=== PATIENT | female | born 1985 | race Caucasian/White ===

== ENCOUNTER 2018-08-01 18:15 | Emergency (ER) | payer BC ==
--- NOTE | 2018-08-01 18:24 | EDM.PDOC ---
ED HPI GENERAL MEDICAL PROBLEM - General Chief Complaint: Skin Complaint Stated Complaint: LEFT HAND INFECTION,SWELLING, SLIGHT PAIN, RASH Time Seen by Provider: 08/01/18 18:23 Source of Information: Reports: Patient History Limitations: Reports: No Limitations - History of Present Illness INITIAL COMMENTS - FREE TEXT/NARRATIVE: History of present illness: []Patient has complaint of a skin infection over her right hand base her dorsal index finger that has spreading redness. Patient denies any fevers, chills but noticed that she has other abrasions on her thigh that seem to be flaring up she also has a vaginal and anal rash that is chronic and has been worked up by the [employer] and cultures were negative for bacteria and need. She would like an answer as to what is the cause of the rash now. Review of systems: As per history of present illness and below otherwise all systems reviewed and negative. Past medical history: As per history of present illness and as reviewed below otherwise noncontributory. Surgical history: As per history of present illness and as reviewed below otherwise noncontributory. Social history: No reported history of drug or alcohol abuse. Family history: As per history of present illness and as reviewed below otherwise noncontributory. Physical exam: General: Well developed, well nourished in NAD HEENT: Atraumatic, normocephalic, pupils reactive, negative for conjunctival pallor or scleral icterus, mucous membranes moist, throat clear, neck supple, nontender, trachea midline. Lungs: Clear to auscultation, breath sounds equal bilaterally, chest nontender. Heart: S1S2, regular, negative for clicks, rubs, or JVD. Abdomen: NABS, Soft, nondistended, nontender. Negative for masses or hepatosplenomegaly. Negative for costovertebral tenderness. Pelvis: Stable nontender. Genitourinary: Patient has external rectal-vaginal rash that appears similar to candidiasis, vaginal Rectal: Deferred. Extremities: Small abrasion over her right dorsal MCP joint, full range of motion, there is surrounding erythema and streaking up her right forearm. Neurovascular unremarkable. Neuro: Awake, alert, oriented. Cranial nerves II through XII unremarkable. Cerebellum unremarkable. Motor and sensory unremarkable throughout. Exam nonfocal. Skin:warm and dry Diagnostics: Bedside glucose-88 Therapeutics: None ED Course: stable Impression: Cellulitis right hand, chronic rectovaginal rash Prescriptions: Doxycycline and Diflucan Plan: Take meds as directed, follow up with your primary care physician, return to ER if symptoms worsen or change. Definitive disposition and diagnosis as appropriate pending reevaluation and review of above. general Pain Score (Numeric/FACES): 3 - Related Data Allergies Allergy/AdvReac Type Severity Reaction Status Date / Time peanut Allergy Anaphylactic Verified 11/04/14 18:22 Shock Sulfa (Sulfonamide Allergy Nausea and Verified 11/04/14 18:23 Antibiotics) Vomiting Home Meds: Home Meds Doxycycline [Vibramycin] 100 mg PO BID #20 tab 08/01/18 [Rx] Fluconazole [Diflucan] 150 mg PO ONETIME #2 tab 08/01/18 [Rx] Past Medical History - Past Surgical History Other HEENT Surgeries/Procedures: adnoidectomy, wisdom teeth extraction ED ROS GENERAL - Review of Systems Review Of Systems: ROS reveals no pertinent complaints other than HPI. ED EXAM, SKIN/RASH Exam: See Below Course - Vital Signs Last Recorded V/S: Last Vital Signs Temp 96.5 F 08/01/18 18:24 Pulse 69 08/01/18 18:24 Resp 18 08/01/18 18:24 BP 165/86 H 08/01/18 18:24 Pulse Ox 100 08/01/18 18:24 - Orders/Labs/Meds Orders: Active Orders 24 hr Category Date Time Status Blood Glucose Check, Bedside [RC] ONETIME Care 08/01/18 18:40 Active Labs: Laboratory Tests 08/01/18 Range/Units 18:47 POC Glucose 88 (60-110) mg/dL Departure - Departure Time of Disposition: 18:54 Disposition: Home, Self-Care 01 Condition: Good Clinical Impression: Cellulitis Qualifiers: Site of cellulitis: extremity Site of cellulitis of extremity: upper extremity Laterality: right Qualified Code(s): L03.113 - Cellulitis of right upper limb Clinical Impression: (Ruled Out): Cellulitis and abscess of hand - Discharge Information *PRESCRIPTION DRUG MONITORING PROGRAM REVIEWED*: No *COPY OF PRESCRIPTION DRUG MONITORING REPORT IN PATIENT DAMIAN: No Prescriptions: Doxycycline [Vibramycin] 100 mg PO BID #20 tab Fluconazole [Diflucan] 150 mg PO ONETIME #2 tab Referrals: Tae Stuart MD [Primary Care Provider] - Forms: ED Department Discharge Additional Instructions: The following information is given to patients seen in the emergency department who are being discharged to home. This information is to outline your options for follow-up care. We provide all patients seen in our emergency department with a follow-up referral. The need for follow-up, as well as the timing and circumstances, are variable depending upon the specifics of your emergency department visit. If you don't have a primary care physician on staff, we will provide you with a referral. We always advise you to contact your personal physician following an emergency department visit to inform them of the circumstance of the visit and for follow-up with them and/or the need for any referrals to a consulting specialist. The emergency department will also refer you to a specialist when appropriate. This referral assures that you have the opportunity for follow-up care with a specialist. All of these measure are taken in an effort to provide you with optimal care, which includes your follow-up. Under all circumstances we always encourage you to contact your private physician who remains a resource for coordinating your care. When calling for follow-up care, please make the office aware that this follow-up is from your recent emergency room visit. If for any reason you are refused follow-up, please contact the [facility] Emergency Department at and asked to speak to the emergency department charge nurse. Take meds as directed, follow up with your primary care physician, return to ER if symptoms worsen or change. [facility] [address] [place] [id number] - My Orders Last 24 Hours: My Active Orders 08/01/18 18:40 Blood Glucose Check, Bedside [RC] ONETIME - Assessment/Plan Last 24 Hours: My Active Orders 08/01/18 18:40 Blood Glucose Check, Bedside [RC] ONETIME
[2018-08-01 21:09] VITALS: BP 115/77
== END 2018-08-01 19:17 | disposition home or self-care (01) ==
LOC: MW.ED 18:15
DX: L03.113 Cellulitis of right upper limb (principal); R21 Rash and other nonspecific skin eruption; Z88.2 Allergy status to sulfonamides; Z91.010 Allergy to peanuts
CPT/HCPCS: 82962; 99283